=== PATIENT | male | born 1930 | race Two or more races ===

== ENCOUNTER 2016-06-19 16:58 | Inpatient (IN) | payer MEDICARE, BC ==
[~2016-06-19] VITALS: Ht 185.4 cm; Wt 97.5 kg
[2016-06-19] MEDS ORDERED: Meclizine 25mg tab ORAL ONE (18:15)
[2016-06-19 19:13] VITALS: BP 102/66
[2016-06-19 19:15] LABS: BASOPHILS % (AUTO) 1.2 % (0.0-2.0); LYMPHOCYTES % (AUTO) 10.6 % (20.0-45.0); MEAN CORPUSCULAR HEMOGLOBIN 30.2 PG (27.0-31.0); MEAN CORPUSCULAR HGB CONC 33.2 G/DL (32.0-36.0); MEAN CORPUSCULAR VOLUME 91 FL (80-99); MEAN PLATELET VOLUME 9.5 FL (6.5-10.1); MONOCYTES % (AUTO) 5.5 % (1.0-10.0); NEUTROPHILS % (AUTO) 82.7 % (45.0-75.0); PLATELET COUNT 156 K/UL (150-450); RED BLOOD COUNT 4.34 M/UL (4.70-6.10); RED CELL DISTRIBUTION WIDTH 13.9 % (11.6-14.8); WHITE BLOOD COUNT 7.7 K/UL (4.8-10.8)
[2016-06-19 19:35] LABS: ALANINE AMINOTRANSFERASE 22 U/L (3-41); ALBUMIN/GLOBULIN RATIO 1.3 (1.0-2.7); ANION GAP 17 (5-15); ASPARTATE AMINO TRANSFERASE 28 U/L (5-40); CALCIUM 8.9 mg/dL (8.6-10.2); CARBON DIOXIDE 25 mEQ/L (20-30); CHLORIDE 91 mEQ/L (98-107); CREATININE 1.6 mg/dL (0.7-1.2); HEMOLYSIS 12; POTASSIUM 4.5 mEQ/L (3.4-4.9); SODIUM 133 mEQ/L (135-145); TROPONIN I < 0.30 ng/mL (<=0.30)
[2016-06-19 19:46] LABS: CKMB 1.5 ng/mL (< 6.7)
[2016-06-19 19:57] LABS: BILIRUBIN,DIRECT 0.3 mg/dL (0.1-0.3)
[2016-06-19 21:15] VITALS: BP 116/73
--- NOTE | 2016-06-19 21:43 | Emergency Room Report ---
History of Present Illness General Chief Complaint: Dizziness Source: Patient, EMS Present Illness HPI 85-year-old male presents to ED complaining of dizziness. States he's been feeling the dizziness the last month but worse the last few days. Patient feels like the room is spinning. Denies blurry vision, nausea vomiting. His headaches. Denies chest pain or shortness of breath. States he was prescribed medication recently for the dizziness but states it is not helping. No other aggravating relieving factors. Denies any other associated symptoms Allergies: Coded Allergies: No Known Allergies (Unverified , 06/19/16) Patient History Past Medical History: CVA/TIA, seizures Past Surgical History: none Pertinent Family History: none Social History: Denies: alcohol use, drug use, smoking Immunizations: UTD Reviewed Nursing Documentation: PMH: Agreed, PSxH: Agreed Nursing Documentation-PMH Hx Hypertension: Yes Hx Cerebrovascular Accident: Yes Hx Seizures: Yes Review of Systems All Other Systems: negative except mentioned in HPI Physical Exam Vital Signs Date Time Temp Pulse Resp B/P Pulse Ox O2 Delivery O2 Flow Rate FiO2 06/19/16 16:54 98.8 92 16 145/89 97 Room Air Sp02 EP Interpretation: reviewed, normal General Appearance: no apparent distress, alert, GCS 15, non-toxic Head: normocephalic, atraumatic Eyes: bilateral eye PERRL, bilateral eye normal inspection ENT: hearing grossly normal, normal pharynx, no angioedema, normal voice Neck: full range of motion, supple/symm/no masses Respiratory: chest non-tender, lungs clear, normal breath sounds, speaking full sentences Cardiovascular #1: regular rate, rhythm, no edema Cardiovascular #2: 2+ carotid (R), 2+ carotid (L), 2+ radial (R), 2+ radial (L) , 2+ dorsalis pedis (R), 2+ dorsalis pedis (L) Gastrointestinal: normal bowel sounds, non tender, soft, non-distended, no guarding, no rebound Rectal: deferred Genitourinary: normal inspection, no CVA tenderness Musculoskeletal: back normal, gait/station normal, normal range of motion, non- tender Neurologic: alert, oriented x3, responsive, motor strength/tone normal, sensory intact, speech normal Psychiatric: judgement/insight normal, memory normal, mood/affect normal, no suicidal/homicidal ideation Reflexes: 3+ bicep (R), 3+ bicep (L), 3+ tricep (R), 3+ tricep (L), 3+ knee (R) , 3+ knee (L) Skin: normal color, no rash, warm/dry, well hydrated Lymphatic: no adenopathy Medical Decision Making Diagnostic Impression: Primary Impression: Dizziness Additional Impressions: Unsteady gait ARF (acute renal failure) Qualified Codes: N17.9 - Acute kidney failure, unspecified ER Course Hospital Course 85-year-old M presents ED complaining of dizziness Differential diagnoses include: [place]/unstable angina, arrythmia, dehydration, CVA/ TIA Clinical course Patient placed on stretcher. 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 After initial history and physical I ordered labs, EKG, chest x-ray, IVFs, CT Brain, meclizine labs reviewed- no leukocytosis, hemoglobin/hematocrit ok, Cr 1.6, troponins negative EKG- NSR, no acute ischemic changes Chest x-ray- no acute process CT brain-unremarkable Despite IV fluids and meclizine patient remains dizzy Case discussed with Dr. Paul and he agreed to accept the patient to his service for further care and support I. I feel this is a highly complex case requiring extensive working including EKG/Rhythm strip, Xray/CT/US, Blood/urine lab work, repeat exams while in ED, and administration of strong opiates/narcotics for pain control, admission to hospital or close patient follow up. Diagnosis - dizziness, unsteady gait, ARF admitted to telemetry in serious condition Labs Test 06/19/16 18:10 White Blood Count 7.7 K/UL (4.8-10.8) Red Blood Count 4.34 M/UL (4.70-6.10) Hemoglobin 13.1 G/DL (14.2-18.0) Hematocrit 39.5 % (42.0-52.0) Mean Corpuscular Volume 91 FL (80-99) Mean Corpuscular Hemoglobin 30.2 PG (27.0-31.0) Mean Corpuscular Hemoglobin Concent 33.2 G/DL (32.0-36.0) Red Cell Distribution Width 13.9 % (11.6-14.8) Platelet Count 156 K/UL (150-450) Mean Platelet Volume 9.5 FL (6.5-10.1) Neutrophils (%) (Auto) 82.7 % (45.0-75.0) Lymphocytes (%) (Auto) 10.6 % (20.0-45.0) Monocytes (%) (Auto) 5.5 % (1.0-10.0) Eosinophils (%) (Auto) 0.0 % (0.0-3.0) Basophils (%) (Auto) 1.2 % (0.0-2.0) Sodium Level 133 mEQ/L (135-145) Potassium Level 4.5 mEQ/L (3.4-4.9) Chloride Level 91 mEQ/L (98-107) Carbon Dioxide Level 25 mEQ/L (20-30) Anion Gap 17 (5-15) Blood Urea Nitrogen 18 mg/dL (7-23) Creatinine 1.6 mg/dL (0.7-1.2) Estimat Glomerular Filtration Rate mL/min (>60) Glucose Level 166 mg/dL (74-106) Calcium Level 8.9 mg/dL (8.6-10.2) Total Bilirubin 1.5 mg/dL (0.0-1.2) Direct Bilirubin 0.3 mg/dL (0.1-0.3) Aspartate Amino Transf (AST/SGOT) 28 U/L (5-40) Alanine Aminotransferase (ALT/SGPT) 22 U/L (3-41) Alkaline Phosphatase 47 U/L (40-129) Total Creatine Kinase 127 U/L (38-174) Creatine Kinase MB 1.5 ng/mL (< 6.7) Creatine Kinase MB Relative Index 1.1 Troponin I < 0.30 ng/mL (<=0.30) Pro-B-Type Natriuretic Peptide 765 pg/mL (0-450) Total Protein 7.0 g/dL (6.6-8.7) Albumin 4.0 g/dL (3.5-5.2) Globulin 3.0 g/dL Albumin/Globulin Ratio 1.3 (1.0-2.7) EKG Diagnostic Results Rate: normal Rhythm: NSR ST Segments: no acute changes ASA given to the pt in ED: No Rhythm Strip Diag. Results EP Interpretation: yes Rhythm: NSR, no PVC's, no ectopy Chest X-Ray Diagnostic Results EP Interpretation: Yes Findings: no consolidation, no effusion, no pneumothorax, no acute cardiopulmonary disease Number of Views: 1 CT/MRI/US Diagnostic Results CT/MRI/US Diagnostic Results : Imaging Test Ordered: CT head Impression no acute process Last Vital Signs Date Time Temp Pulse Resp B/P Pulse Ox O2 Delivery O2 Flow Rate FiO2 06/19/16 19:13 98.3 81 14 102/66 93 Room Air Status: improved Disposition: ADMITTED INPATIENT Condition: Serious Referrals: NON PHYSICIAN (PCP) HEATHER LICEA M.D. Jun 19, 2016 21:43
[2016-06-19 22:40] VITALS: BP 110/68
[2016-06-19] MEDS ORDERED: LORazepam Inj 2mg/ml 1ml IV PRN (22:45)
[2016-06-19] MEDS ORDERED: Mylanta II UD 30ml ORAL PRN (22:45)
[2016-06-19] MEDS ORDERED: Morphine Sulfate 2mg/ml Inj IVP PRN (22:45)
[2016-06-19] MEDS ORDERED: DuoNeb 0.5-3(2.5)mg/3ml neb HHN PRN (22:45)
[2016-06-19] MEDS ORDERED: Nitroglycerin Subl 0.4mg tab (Bottle Of 25) SL PRN (22:45)
[2016-06-19] MEDS ORDERED: Miralax 17gm pkt ORAL PRN (22:45)
[2016-06-19] MEDS ORDERED: UNOBMED (23:06)
[2016-06-20] VITALS (9 sets, daily range): BP systolic 105–147; BP diastolic 48–87
[2016-06-20] MEDS ORDERED: Meclizine 25mg tab ORAL PRN (00:15)
[2016-06-20] MEDS: Meclizine 25mg tab ORAL SCH ×4 (00:50→18:32)
[2016-06-20 08:07] LABS: BASOPHILS % (AUTO) 1.1 % (0.0-2.0); EOSINOPHILS % (AUTO) 1.1 % (0.0-3.0); LYMPHOCYTES % (AUTO) 27.5 % (20.0-45.0); MEAN CORPUSCULAR HEMOGLOBIN 30.2 PG (27.0-31.0); MEAN CORPUSCULAR HGB CONC 33.9 G/DL (32.0-36.0); MEAN CORPUSCULAR VOLUME 89 FL (80-99); MEAN PLATELET VOLUME 11.2 FL (6.5-10.1); MONOCYTES % (AUTO) 11.4 % (1.0-10.0); PLATELET COUNT 167 K/UL (150-450); RED BLOOD COUNT 4.54 M/UL (4.70-6.10); RED CELL DISTRIBUTION WIDTH 13.8 % (11.6-14.8); WHITE BLOOD COUNT 5.7 K/UL (4.8-10.8)
[2016-06-20 08:19] LABS: INR 1.1 (0.9-1.1); PROTHROMBIN TIME 11.4 SEC (9.30-11.50)
[2016-06-20 08:21] LABS: APPEARANCE,URINE CLEAR; KETONES,URINE NEGATIVE (NEGATIVE); LEUKOCYTE ESTERASE ,URINE 1+ (NEGATIVE); NITRITE,URINE NEGATIVE (NEGATIVE); PH,URINE 5 (4.5-8.0); PROTEIN,URINE 1+ (NEGATIVE); UROBILINOGEN,URINE 4 MG/DL (0.0-1.0)
[2016-06-20 08:25] LABS: URIC ACID 6.5 mg/dL (3.0-7.5)
[2016-06-20 08:30] LABS: FREE T3 1.8 pg/mL (2.3-4.2); THYROID STIMULATING HORMONE 2.96 uIU/mL (0.300-4.500)
[2016-06-20 08:41] LABS: ANION GAP 14 (5-15); ASPARTATE AMINO TRANSFERASE 26 U/L (5-40); CARBON DIOXIDE 26 mEQ/L (20-30); CHLORIDE 95 mEQ/L (98-107); HEMOLYSIS 5; POTASSIUM 4.1 mEQ/L (3.4-4.9); SODIUM 135 mEQ/L (135-145); TOTAL PROTEIN 6.7 g/dL (6.6-8.7)
[2016-06-20 08:50] LABS: BACTERIA,URINE FEW /HPF; RBC,URINE 0-2 /HPF (0 - 0); SQUAMOUS EPITHELIAL CELL,UR OCCASIONAL /LPF (NONE/OCC)
[2016-06-20 08:51] LABS: MUCUS,URINE FEW /LPF (NONE/OCC)
[2016-06-20] MEDS ORDERED: Heparin 5000 units/ml inj SUBQ SCH (09:00)
[2016-06-20 09:05] LABS: ALANINE AMINOTRANSFERASE 18 U/L (3-41); ALBUMIN/GLOBULIN RATIO 1.3 (1.0-2.7); CALCIUM 8.7 mg/dL (8.6-10.2); CHOLESTEROL 131 mg/dL (< 200); CREATININE 1.5 mg/dL (0.7-1.2); LDL CHOLESTEROL (CALC.) 75 mg/dL (60-99)
[2016-06-20 09:25] LABS: BILIRUBIN,DIRECT 0.3 mg/dL (0.1-0.3)
--- NOTE | 2016-06-20 12:27 | Diagnostic Imaging Report ---
Indication: Altered Mental status Technique: Contiguous 5 mm thick transaxial imaging of the head obtained in a Siemens Sensation [address] scanner. Soft tissue and bone windows generated. Total Dose length Product (DLP): [address] Dose Index Volume (CTDIvol): 70.38 mGy Comparison: none Findings: There is mild prominence of the ventricles, basal cisterns, and cerebral sulci consistent with atrophy. Mild, nonspecific, white matter hypoattenuation is noted throughout the brain consistent with chronic small vessel disease. There is no midline shift, edema, acute hemorrhage, mass effect, or abnormal extra-axial fluid collections. Bones and extra osseous soft tissues are unremarkable. Impression: No acute intracranial bleed, mass effect or edema. Mild atrophy of the brain. Nonspecific white matter hypoattenuation probably due to chronic small vessel disease. The CT scanner at [facility] is accredited by the [employer] and the scans are performed using protocols designed to limit radiation exposure to as low as reasonably achievable to attain images of sufficient resolution adequate for diagnostic evaluation.
--- NOTE | 2016-06-20 12:27 | Diagnostic Imaging Report ---
APPROVED REPORT CPT Code: 30653 Vascular Symptoms CVA/TIA: Doppler Spectral Velocity Analysis RightLeft RIGHT SIDE: CCA - Imaging reveals no significant plaque in the common carotid artery. ICA arteries. The Doppler signal indicates the degree of stenosis is mild (30%) in the internal carotid, and minimal (20%) in the external carotid arteries. VERTEBRAL - The vertebral artery is patent, without evidence of stenosis or steal. LEFT SIDE: CCA - Imaging reveals no significant plaque in the common carotid artery. ICA arteries. The Doppler signal indicates the degree of stenosis is mild (30%) in the internal carotid, and minimal (20%) in the external carotid arteries. VERTEBRAL - The vertebral artery is patent, without evidence of stenosis or steal.
--- NOTE | 2016-06-20 13:16 | Diagnostic Imaging Report ---
Indication: Chest Pain Comparison: None A single view chest radiograph was obtained. Findings: No definite infiltrate or pulmonary vascular congestion identified. Lung volumes are low. The heart is enlarged. The aorta is mildly enlarged consistent with atherosclerotic vascular disease. The bones are osteopenic. Impression: No acute disease
--- NOTE | 2016-06-20 14:28 | Consultation ---
History of Present Illness General Date patient seen: Jun 20, 2016 Chief Complaint: Dizziness Referring physician: Dr. Paul Reason for Consultation: Inpatient management Present Illness Allergies: Coded Allergies: No Known Allergies (Unverified , 06/19/16) Medication History Miscellaneous Medications Unable to Obtain Medications (Unable To Obtain Meds), (Reported) Patient History Healthcare decision maker pt alert and oriented Resuscitation status Full Code Advanced Directive on File No Past Medical/Surgical History Past Medical/Surgical History: (1) HTN (hypertension) (2) Weakness (3) Dizziness (4) ARF (acute renal failure) Review of Systems All Other Systems: negative except mentioned in HPI Physical Exam General Appearance: WD/WN Lines, tubes and drains: peripheral Neck: non-tender, normal alignment Respiratory/Chest: chest wall non-tender, lungs clear Cardiovascular/Chest: normal peripheral pulses Abdomen: normal bowel sounds Genitourinary/Rectal: normal genital exam Neurologic: sap ppm consultant II-XII grossly normal Last 24 Hour Vital Signs Date Time Temp Pulse Resp B/P Pulse Ox O2 Delivery O2 Flow Rate FiO2 06/20/16 11:57 78 06/20/16 11:22 97.3 85 20 132/75 98 Room Air 06/20/16 08:00 81 06/20/16 07:58 97.5 83 20 122/87 97 Room Air 06/20/16 04:00 79 06/20/16 04:00 97.0 91 20 144/70 96 Room Air 06/20/16 01:44 97.2 68 20 105/48 95 Room Air 06/20/16 00:17 97.0 88 20 116/66 95 Room Air 06/20/16 00:00 69 06/19/16 23:15 98.3 70 18 110/68 95 Room Air 06/19/16 22:40 98.3 70 18 110/68 95 Room Air 06/19/16 21:15 98.3 77 14 116/73 94 Room Air 06/19/16 19:13 98.3 81 14 102/66 93 Room Air 06/19/16 16:54 98.8 92 16 145/89 97 Room Air Intake and Output 06/19/16 06/20/16 19:00 07:00 Intake Total 1000 ml Output Total 350 ml Balance 650 ml IV Total 500 ml Other 500 ml Output Urine Total 350 ml # Voids 1 Laboratory Tests Test 06/19/16 18:10 06/20/16 06:58 06/20/16 07:00 White Blood Count 7.7 K/UL (4.8-10.8) 5.7 K/UL (4.8-10.8) Red Blood Count 4.34 M/UL (4.70-6.10) L 4.54 M/UL (4.70-6.10) L Hemoglobin 13.1 G/DL (14.2-18.0) L 13.7 G/DL (14.2-18.0) L Hematocrit 39.5 % (42.0-52.0) L 40.6 % (42.0-52.0) L Mean Corpuscular Volume 91 FL (80-99) 89 FL (80-99) Mean Corpuscular Hemoglobin 30.2 PG (27.0-31.0) 30.2 PG (27.0-31.0) Mean Corpuscular Hemoglobin Concent 33.2 G/DL (32.0-36.0) 33.9 G/DL (32.0-36.0) Red Cell Distribution Width 13.9 % (11.6-14.8) 13.8 % (11.6-14.8) Platelet Count 156 K/UL (150-450) 167 K/UL (150-450) Mean Platelet Volume 9.5 FL (6.5-10.1) 11.2 FL (6.5-10.1) H Neutrophils (%) (Auto) 82.7 % (45.0-75.0) H 59.0 % (45.0-75.0) Lymphocytes (%) (Auto) 10.6 % (20.0-45.0) L 27.5 % (20.0-45.0) Monocytes (%) (Auto) 5.5 % (1.0-10.0) 11.4 % (1.0-10.0) H Eosinophils (%) (Auto) 0.0 % (0.0-3.0) 1.1 % (0.0-3.0) Basophils (%) (Auto) 1.2 % (0.0-2.0) 1.1 % (0.0-2.0) Sodium Level 133 mEQ/L (135-145) L 135 mEQ/L (135-145) Potassium Level 4.5 mEQ/L (3.4-4.9) 4.1 mEQ/L (3.4-4.9) Chloride Level 91 mEQ/L (98-107) L 95 mEQ/L (98-107) L Carbon Dioxide Level 25 mEQ/L (20-30) 26 mEQ/L (20-30) Anion Gap 17 (5-15) H 14 (5-15) Blood Urea Nitrogen 18 mg/dL (7-23) 22 mg/dL (7-23) Creatinine 1.6 mg/dL (0.7-1.2) H 1.5 mg/dL (0.7-1.2) H Estimat Glomerular Filtration Rate mL/min (>60) mL/min (>60) Glucose Level 166 mg/dL (74-106) H 122 mg/dL (74-106) H Calcium Level 8.9 mg/dL (8.6-10.2) 8.7 mg/dL (8.6-10.2) Total Bilirubin 1.5 mg/dL (0.0-1.2) H 1.3 mg/dL (0.0-1.2) H Direct Bilirubin 0.3 mg/dL (0.1-0.3) 0.3 mg/dL (0.1-0.3) Aspartate Amino Transf (AST/SGOT) 28 U/L (5-40) 26 U/L (5-40) Alanine Aminotransferase (ALT/SGPT) 22 U/L (3-41) 18 U/L (3-41) Alkaline Phosphatase 47 U/L (40-129) 42 U/L (40-129) Total Creatine Kinase 127 U/L (38-174) Creatine Kinase MB 1.5 ng/mL (< 6.7) Creatine Kinase MB Relative Index 1.1 Troponin I < 0.30 ng/mL (<=0.30) Pro-B-Type Natriuretic Peptide 765 pg/mL (0-450) H Total Protein 7.0 g/dL (6.6-8.7) 6.7 g/dL (6.6-8.7) Albumin 4.0 g/dL (3.5-5.2) 3.8 g/dL (3.5-5.2) Globulin 3.0 g/dL 2.9 g/dL Albumin/Globulin Ratio 1.3 (1.0-2.7) 1.3 (1.0-2.7) Prothrombin Time 11.4 SEC (9.30-11.50) Prothromb Time International Ratio 1.1 (0.9-1.1) Activated Partial Thromboplast Time 30 SEC (23-33) Plasma/Serum Osmolality Pending Uric Acid 6.5 mg/dL (3.0-7.5) Triglycerides Level 170 mg/dL (< 150) H Cholesterol Level 131 mg/dL (< 200) LDL Cholesterol 75 mg/dL (60-99) HDL Cholesterol 22 mg/dL (> 60) Cholesterol/HDL Ratio 6.0 (3.3-4.4) H Thyroid Stimulating Hormone (TSH) 2.990 uIU/mL (0.300-4.500) Free Thyroxine 1.11 ng/dL (0.86-1.85) Free Triiodothyronine 1.8 pg/mL (2.3-4.2) L Cortisol Pending Urine Color Yellow Urine Appearance Clear Urine pH 5 (4.5-8.0) Urine Specific [place] 1.025 (1.005-1.035) Urine Protein 1+ (NEGATIVE) H Urine Glucose (UA) Negative (NEGATIVE) Urine Ketones Negative (NEGATIVE) Urine Occult Blood 1+ (NEGATIVE) H Urine Nitrite Negative (NEGATIVE) Urine Bilirubin Negative (NEGATIVE) Urine Urobilinogen 4 MG/DL (0.0-1.0) H Urine Leukocyte Esterase 1+ (NEGATIVE) H Urine RBC 0-2 /HPF (0 - 0) H Urine WBC 2-4 /HPF (0 - 0) Urine Squamous Epithelial Cells Occasional /LPF Urine Bacteria Few /HPF (NONE) Urine Mucus Few /LPF (NONE/OCC) H Urine Osmolality Pending Urine Random Sodium 112 mmol/L Height (Feet): 6 Height (Inches): 1.00 Weight (Pounds): 215 Medications Current Medications Medications (Trade) Dose Ordered Sig/Juanpablo Route PRN Reason Start Time Stop Time Status Last Admin Dose Admin Acetaminophen (Tylenol) 650 mg Q4H PRN ORAL Mild Pain/Temp > 100.5 06/20/16 04:00 07/20/16 03:59 06/20/16 04:11 Al Hydroxide/Mg Hydroxide (Mylanta II) 30 ml Q6H PRN ORAL dyspepsia 06/19/16 22:45 07/19/16 22:44 Albuterol/ Ipratropium (DuoNeb 0.5-3(2.5)mg/3ml) 3 ml Q4H PRN HHN Shortness of Breath 06/19/16 22:45 06/24/16 22:44 Clonidine HCl (Catapres) 0.1 mg Q4H PRN ORAL For High Blood Pressure 06/19/16 22:45 07/19/16 22:44 Dextrose (Dextrose 50%) STAT PRN IV Hypoglycemia 06/19/16 22:45 07/19/16 22:44 Heparin Sodium (Porcine) (Heparin 5000 units/ml) 5,000 units EVERY 12 HOURS SUBQ 06/20/16 09:00 07/20/16 08:59 06/20/16 08:33 Lorazepam (Ativan 2mg/ml 1ml) 0.5 mg Q4H PRN IV For Anxiety 06/19/16 22:45 06/26/16 22:44 Meclizine HCl (Antivert) 25 mg Q6H ORAL 06/20/16 00:15 07/20/16 00:14 06/20/16 12:28 Morphine Sulfate (Morphine Sulfate) 1 mg Q4H PRN IVP For Pain 7-10 06/19/16 22:45 06/26/16 22:44 Nitroglycerin (Ntg) 0.4 mg Q5M X 3 DOSES PRN SL Prn Chest Pain 06/19/16 22:45 07/19/16 22:44 Ondansetron HCl (Zofran) 4 mg Q6H PRN IVP Nausea & Vomiting 06/19/16 22:45 07/19/16 22:44 Polyethylene Glycol (Miralax) 17 gm HSPRN PRN ORAL Constipation 06/19/16 22:45 07/19/16 22:44 Temazepam (Restoril) 15 mg HSPRN PRN ORAL Insomnia 06/19/16 22:45 06/26/16 22:44 Assessment/Plan Problem List: (1) Positional vertigo ICD Codes: H81.10 - Benign paroxysmal vertigo, unspecified ear SNOMED: 740042178 (2) Atrial fibrillation ICD Codes: I48.91 - Unspecified atrial fibrillation SNOMED: 63126889 (3) Unsteady gait ICD Codes: R26.81 - Unsteadiness on feet SNOMED: 49746590, 304775138 (4) Weakness ICD Codes: R53.1 - Weakness SNOMED: 52252022 (5) HTN (hypertension) ICD Codes: I10 - Essential (primary) hypertension SNOMED: 79518553 Assessment/Plan telemetry admission echocardiogram neuro evaluatin monitor heart rate needs to get home meds. ANA M ESTEVES Jun 20, 2016 14:28
--- NOTE | 2016-06-20 14:40 | Consultation ---
Consult Note Consult Note I was asked to evaluate for elevated Cr Chief Complaint: Dizziness HPI 85-year-old male presents to ED complaining of dizziness. States he's been feeling the dizziness the last month but worse the last few days. Patient feels like the room is spinning. Denies blurry vision, nausea vomiting. His headaches. Denies chest pain or shortness of breath. States he was prescribed medication recently for the dizziness but states it is not helping. No other aggravating relieving factors. Denies any other associated symptoms Past Medical History: CVA/TIA, seizures Hx Hypertension: Yes Hx Cerebrovascular Accident: Yes Hx Seizures: Yes patient interviewed- poor historian- examined- data reviewed . Assessment/Plan status; Renal failure- ? dehydrated or related to HTN Ua : has + Proteinuria HTN CVA Plan: Hydrate- Monitor renal parameters- Urine studies- Per orders YANE VALENCIA Jun 20, 2016 14:40
--- NOTE | 2016-06-20 15:07 | Cardiology Report ---
APPROVED REPORT EXAM: Two-dimensional and M-mode echocardiogram with Doppler and color Doppler. INDICATION Left ventricular function M-Mode DIMENSIONS IVSd0.6 (0.7-1.1cm)Left Atrium (MM)4.5 (1.6-4.0cm) LVDd5.0 (3.5-5.6cm)Aortic Root2.8 (2.0-3.7cm) PWd0.8 (0.7-1.1cm)Aortic Cusp Exc.1.6 (1.5-2.0cm) LVDs3.9 (2.5-4.0cm) PWs0.8 cm Normal left ventricular chamber size, systolic function and wall motion. Left ventricular ejection fraction estimated to be 55-60%. No evidence of left ventricular hypertrophy. No evidence of pericardial fat or effusion. Mild left atrial enlargement by 2D. Right cardiac chamber sizes are within normal limits. Mild focal aortic valve sclerosis with adequate cusp excursion Thickened mitral valve leaflets with normal excursion. Mild mitral annulus and aortic root calcification. Pulmonic valve not well visualized. Normal tricuspid valve structure. IVC dilated at 2.4cm with no physiologic collapse. RA pressure of 20mmHg. A color flow and spectral Doppler study was performed and revealed: No aortic regurgitation. Mild mitral regurgitation. Left ventricular diastolic dysfunction not obtainable due to arrthymia. Moderate tricuspid regurgitation. Tricuspid systolic velocities suggests peak right ventricular systolic pressure of 42 mmHg Consistent with mild pulmonary hypertension.
--- NOTE | 2016-06-20 15:45 | Cardiac Electrophysiology PN ---
Subjective Subjective [id number]. Atrial fib. Tachybrady, NSVT, Dizziness and syncope. Offered EPS and pacer By Dr Montoya Objective Last 24 Hour Vital Signs Date Time Temp Pulse Resp B/P Pulse Ox O2 Delivery O2 Flow Rate FiO2 06/20/16 11:57 78 06/20/16 11:22 97.3 85 20 132/75 98 Room Air 06/20/16 08:00 81 06/20/16 07:58 97.5 83 20 122/87 97 Room Air 06/20/16 04:00 79 06/20/16 04:00 97.0 91 20 144/70 96 Room Air 06/20/16 01:44 97.2 68 20 105/48 95 Room Air 06/20/16 00:17 97.0 88 20 116/66 95 Room Air 06/20/16 00:00 69 06/19/16 23:15 98.3 70 18 110/68 95 Room Air 06/19/16 22:40 98.3 70 18 110/68 95 Room Air 06/19/16 21:15 98.3 77 14 116/73 94 Room Air 06/19/16 19:13 98.3 81 14 102/66 93 Room Air 06/19/16 16:54 98.8 92 16 145/89 97 Room Air Intake and Output 06/19/16 06/20/16 19:00 07:00 Intake Total 1000 ml Output Total 350 ml Balance 650 ml IV Total 500 ml Other 500 ml Output Urine Total 350 ml # Voids 1 Laboratory Tests Test 06/19/16 18:10 06/20/16 06:58 06/20/16 07:00 White Blood Count 7.7 K/UL (4.8-10.8) 5.7 K/UL (4.8-10.8) Red Blood Count 4.34 M/UL (4.70-6.10) L 4.54 M/UL (4.70-6.10) L Hemoglobin 13.1 G/DL (14.2-18.0) L 13.7 G/DL (14.2-18.0) L Hematocrit 39.5 % (42.0-52.0) L 40.6 % (42.0-52.0) L Mean Corpuscular Volume 91 FL (80-99) 89 FL (80-99) Mean Corpuscular Hemoglobin 30.2 PG (27.0-31.0) 30.2 PG (27.0-31.0) Mean Corpuscular Hemoglobin Concent 33.2 G/DL (32.0-36.0) 33.9 G/DL (32.0-36.0) Red Cell Distribution Width 13.9 % (11.6-14.8) 13.8 % (11.6-14.8) Platelet Count 156 K/UL (150-450) 167 K/UL (150-450) Mean Platelet Volume 9.5 FL (6.5-10.1) 11.2 FL (6.5-10.1) H Neutrophils (%) (Auto) 82.7 % (45.0-75.0) H 59.0 % (45.0-75.0) Lymphocytes (%) (Auto) 10.6 % (20.0-45.0) L 27.5 % (20.0-45.0) Monocytes (%) (Auto) 5.5 % (1.0-10.0) 11.4 % (1.0-10.0) H Eosinophils (%) (Auto) 0.0 % (0.0-3.0) 1.1 % (0.0-3.0) Basophils (%) (Auto) 1.2 % (0.0-2.0) 1.1 % (0.0-2.0) Sodium Level 133 mEQ/L (135-145) L 135 mEQ/L (135-145) Potassium Level 4.5 mEQ/L (3.4-4.9) 4.1 mEQ/L (3.4-4.9) Chloride Level 91 mEQ/L (98-107) L 95 mEQ/L (98-107) L Carbon Dioxide Level 25 mEQ/L (20-30) 26 mEQ/L (20-30) Anion Gap 17 (5-15) H 14 (5-15) Blood Urea Nitrogen 18 mg/dL (7-23) 22 mg/dL (7-23) Creatinine 1.6 mg/dL (0.7-1.2) H 1.5 mg/dL (0.7-1.2) H Estimat Glomerular Filtration Rate mL/min (>60) mL/min (>60) Glucose Level 166 mg/dL (74-106) H 122 mg/dL (74-106) H Calcium Level 8.9 mg/dL (8.6-10.2) 8.7 mg/dL (8.6-10.2) Total Bilirubin 1.5 mg/dL (0.0-1.2) H 1.3 mg/dL (0.0-1.2) H Direct Bilirubin 0.3 mg/dL (0.1-0.3) 0.3 mg/dL (0.1-0.3) Aspartate Amino Transf (AST/SGOT) 28 U/L (5-40) 26 U/L (5-40) Alanine Aminotransferase (ALT/SGPT) 22 U/L (3-41) 18 U/L (3-41) Alkaline Phosphatase 47 U/L (40-129) 42 U/L (40-129) Total Creatine Kinase 127 U/L (38-174) Creatine Kinase MB 1.5 ng/mL (< 6.7) Creatine Kinase MB Relative Index 1.1 Troponin I < 0.30 ng/mL (<=0.30) Pro-B-Type Natriuretic Peptide 765 pg/mL (0-450) H Total Protein 7.0 g/dL (6.6-8.7) 6.7 g/dL (6.6-8.7) Albumin 4.0 g/dL (3.5-5.2) 3.8 g/dL (3.5-5.2) Globulin 3.0 g/dL 2.9 g/dL Albumin/Globulin Ratio 1.3 (1.0-2.7) 1.3 (1.0-2.7) Prothrombin Time 11.4 SEC (9.30-11.50) Prothromb Time International Ratio 1.1 (0.9-1.1) Activated Partial Thromboplast Time 30 SEC (23-33) Plasma/Serum Osmolality Pending Uric Acid 6.5 mg/dL (3.0-7.5) Triglycerides Level 170 mg/dL (< 150) H Cholesterol Level 131 mg/dL (< 200) LDL Cholesterol 75 mg/dL (60-99) HDL Cholesterol 22 mg/dL (> 60) Cholesterol/HDL Ratio 6.0 (3.3-4.4) H Thyroid Stimulating Hormone (TSH) 2.990 uIU/mL (0.300-4.500) Free Thyroxine 1.11 ng/dL (0.86-1.85) Free Triiodothyronine 1.8 pg/mL (2.3-4.2) L Cortisol Pending Urine Color Yellow Urine Appearance Clear Urine pH 5 (4.5-8.0) Urine Specific [place] 1.025 (1.005-1.035) Urine Protein 1+ (NEGATIVE) H Urine Glucose (UA) Negative (NEGATIVE) Urine Ketones Negative (NEGATIVE) Urine Occult Blood 1+ (NEGATIVE) H Urine Nitrite Negative (NEGATIVE) Urine Bilirubin Negative (NEGATIVE) Urine Urobilinogen 4 MG/DL (0.0-1.0) H Urine Leukocyte Esterase 1+ (NEGATIVE) H Urine RBC 0-2 /HPF (0 - 0) H Urine WBC 2-4 /HPF (0 - 0) Urine Squamous Epithelial Cells Occasional /LPF Urine Bacteria Few /HPF (NONE) Urine Mucus Few /LPF (NONE/OCC) H Urine Osmolality Pending Urine Random Sodium 112 mmol/L COLBY DELATORRE Jun 20, 2016 15:45
[2016-06-20] MEDS ORDERED: D5NS 1,000 ML IV SCH (16:00)
[2016-06-20] MEDS ORDERED: Xarelto 15mg tab ORAL SCH (18:00)
[2016-06-20] MEDS ORDERED: Nitroglycerin Subl 0.4mg tab (Bottle Of 25) SL PRN (21:15)
--- NOTE | 2016-06-20 21:38 | Consultation ---
DATE OF CONSULTATION: 06/20/2016 REQUESTING PHYSICIAN: 1. Jenifer Paul M.D. 2. Afshin Ramos M.D. INDICATION FOR CONSULTATION: An 85-year-old male who was had a month when he stands up. Getting dizzy. It is getting worse about a month ago. He had a cold. Also, he has been worked up elsewhere. He does see Dr. Rashi Heath whose office is next door to me. So, all get some information from him when I get back to the office. MEDICATIONS: Tylenol, Mylanta, Catapres, heparin, albuterol, Ativan, meclizine, morphine, sulfate, Zofran, nitroglycerin, MiraLAX, and Restoril. PAST MEDICAL HISTORY: Significant for cerebrovascular accident, seizures, and hypertension in the past. ALLERGIES: No known drug allergies. PHYSICAL EXAMINATION: The patient is a 85-year-old male, 185.42 cm, 97.2 kg, BMI 28.4. Head is normocephalic. Eyes, pupils are equal, round, and reactive to light and EOMI. No nystagmus when I move his head right and left quickly and up and down and when he does it on his own as well, although he is lying down. When he sat up, he was okay and stands up. He says he gets dizzy. Mouth normal. Ears is positive light reflex. Normal canals. ASSESSMENT: He has vertigo. I am not sure if it is just hypotension and he needs to adjust his blood pressure medication or it is a semicircular canal issue, which is not evident. PLAN: When he is discharged next week, he is being seen in my office. We will arrange for a VNG and will let me know whether it is coming from his brain, his ear or peripherally such as a blood pressure issue. Thank you very much for asking me. I spent approximately 35 minutes with him. Thank you very much for asking my opinion in the care and treatment of this patient. Please also note, I spoke with Dr. Ramos. Bony Jasso M.D. DR: PARAS JOB#: [id number] CC:
[2016-06-20] MEDS ORDERED: Morphine Sulfate 2mg/ml Inj IVP PRN (22:00)
[2016-06-20] MEDS ORDERED: Miralax 17gm pkt ORAL PRN (22:00)
[2016-06-20] MEDS ORDERED: D5NS 1,000 ML IV ONE (22:00)
[2016-06-20] MEDS ORDERED: LORazepam Inj 2mg/ml 1ml IV PRN (22:00)
[2016-06-20] MEDS ORDERED: DuoNeb 0.5-3(2.5)mg/3ml neb HHN PRN (22:45)
--- NOTE | 2016-06-20 23:12 | Consultation ---
Consult Note Consult Note NEUROLOGY CONSULTATION: Full note dictated #[id number] 85 y/o, RH, CM with PH of HTN, a stroke with no specific symptoms that he can describe a few years ago and positional vertigo for ~ 1 year. A few days PRODUCTION LINE the vertigo became much more frequent and much more severe and he thus came to the [facility] ER. ON EXAM: Mild problems with memory Right VII central Right FE weakness Globally diminished reflexes. Few beats of nystagmus but no vertigo on R-Sided head movement. Wide based stance and gait. 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 REC: MRI of brain. W/U neuropathy. If vertigo becomes more bothersome Valium 2 mg q HS. Mckenzie-Daroff exercises. Lars Jama M.D., M.S.P.LARS VEE Jun 20, 2016 23:12
[2016-06-21] VITALS: BP 137/88
--- NOTE | 2016-06-21 01:18 | Consultation ---
DATE OF CONSULTATION: 06/20/2016 NEUROLOGY CONSULTATION CONSULTING PHYSICIAN: Kush Jama M.D. REFERRING PHYSICIAN: Jenifer Paul M.D. HISTORY: Mr. Jack Salazar is an 85-year-old, right-handed, gentleman, who does have a past history of hypertension, a stroke with no specific symptoms a few years ago, and positional vertigo usually when he wakes up in the morning for the last year or so. A few days prior to admission, the vertigo became much more frequent and much more severe, and he was having multiple episodes of vertigo during the day. Because of these frequent episodes of vertigo, he presented to the [facility] emergency room. He denies any associated weakness on one side or the other, numbness on one side or the other, problems with speech, problems with language, problems with vision, nausea, or vomiting. He is unable to tell me if the vertigo becomes worse if he lies on one side or the other or if it worsens if he is undergoing any kind of activity. He, however, notices it most when he changes his position. He has noticed that if he lays still, the vertigo does not bother him. PAST MEDICAL HISTORY: Significant for high blood pressure for numerous years, a stroke with nonspecific symptoms a few years ago. FAMILY HISTORY: Nothing significant. PERSONAL HISTORY: Home: He lives at home with his . 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 Habits: He denies use of alcohol, tobacco, or illicit drugs. PRESENT MEDICATIONS: Xarelto, Antivert, clonidine, DuoNeb, Tylenol, lorazepam, morphine p.r.n., Zofran p.r.n., MiraLAX, Restoril, and nitroglycerin p.r.n. PHYSICAL EXAMINATION: GENERAL: He is a well-developed, well-nourished, pleasant, gentleman, lying in bed, in no acute distress. VITAL SIGNS: Pulse 72 per minute, blood pressure 138/78 mmHg, respirations 18 per minute, and temperature 98.1 degrees Fahrenheit. HEAD: Normocephalic and atraumatic. EENT: Examination benign except for decreased hearing bilaterally. NECK: No neck rigidity was observed. NEUROLOGICAL EXAMINATION: MENTAL STATUS EXAMINATION: He was awake and alert. He was oriented to person, place, and time. He was able to recall 3/3 words immediately after 1 minute and 3 minutes on the second trial. He was able to remember presidents, Trump through Saenz Sr. with hints. His mathematical skills were fairly good. His visuospatial function was preserved. SPEECH: He had no dysarthria. LANGUAGE: He had a mild anomia for low-frequency words. CRANIAL NERVE EXAMINATION: II: The visual chavez were intact on confrontation testing. III, IV & : The external ocular movements were full and the pupils 3 mm in diameter, equal, round, regular, and reactive to light. V: He had normal facial sensations and the temporales, masseters, and pterygoids functioned normally. VII: He had a right VII central facial paresis. VIII: Hearing was decreased bilaterally. He did have a few beats of nystagmus when his head was turned to the right side, however, this was not reproducible. IX: The palate moved symmetrically on phonation. X: He had no hoarseness of voice. XI: The sternocleidomastoids and trapezii functioned normally. XII: The tongue was in the midline without any fasciculations or atrophy. MOTOR SYSTEM: The tone was normal in all four extremities. Examination of muscle mass revealed no focal wasting. Examination of power revealed grade 5/5 power except for grade 4+/5 power in the right finger extensors. SENSORY EXAMINATION: He had intact sensations to pinprick, light touch, and graphesthesia. Position sense was minimally diminished in the toes bilaterally, but was normal in the fingers bilaterally. COORDINATION: He performed well on burexz-ge-ajki and lldu-mz-ubfi testing. On Romberg test, he swayed, but did not fall to one side or the other. REFLEXES: Trace+ and bilaterally symmetric at the biceps, triceps, brachioradialis, and knees. 0 at both ankles. The plantar responses were flexor bilaterally. STANCE: He had a wide-based stance. GAIT: He walked with a wide-based, but stable gait with contact guard. DIAGNOSTIC IMPRESSION: 1. Mr. Jack Salazar is an 85-year-old, right-handed, gentleman, who does have a past history of hypertension, a stroke with no specific symptoms a few years ago, and positional vertigo for the last year or so. A few days ago, his vertigo became much more frequent, much more severe, and much more bothersome. As a result of that, he presented to the [facility] emergency room on 06/19/2016 and has since been admitted. 2. On neurological examination at this time, he does demonstrate mild problems with recent and remote memory, a mild right VII central facial paresis, right finger extensor weakness, decreased position sense in the toes bilaterally, globally diminished deep tendon reflexes, a few beats of nystagmus, but no vertigo when the head was turned to the right side, a wide-based stance, and a wide-based gait. 3. Laboratory data revealed a mild anemia with a hemoglobin of 13.1. The chemistry panel revealed a creatinine elevated to 1.6, sodium down to 133, chloride down to 91, bilirubin elevated to 1.5, ProBNP elevated to 765, and normal TSH and T4 with a minimally low T3. The urinalysis revealed 1+ leukocyte esterase, 0-2 red blood cells, and 2-4 white blood cells per high-power field. 4. 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 The right paresis involving the face and upper extremity are most probably related to his old stroke; however, because he vehemently denies any weakness in the past, this should be investigated. 5. He also has signs of an additional neuropathic process, mainly the decreased position sense in the toes bilaterally, diminished deep tendon reflexes, and unsteadiness on his feet, which should be worked up. RECOMMENDATIONS: 1. Agree with management thus far. 2. An MRI scan of the brain will be ordered to evaluate the patient for his right-sided weakness. 3. He will be worked up thoroughly for other treatable cause of neuropathy with a B12 level, folate level, vitamin D level, RPR, glycohemoglobin, and Westergren sedimentation rate. 4. If the vertigo becomes more bothersome, then he may respond well to Valium 2 mg taken at bedtime. 5. Mckenzie-Daroff exercises should be started to help him with his labyrinthine vertigo. Thank you for entrusting me with the care of Mr. Salazar I shall follow him with you. Kush Jama M.D., M.S.P.H. DR: MARCUS JOB#: [id number] MTDD
[2016-06-21 04:00] VITALS: BP 140/104
[2016-06-21 07:03] LABS: BASOPHILS % (AUTO) 1.3 % (0.0-2.0); LYMPHOCYTES % (AUTO) 24.3 % (20.0-45.0); MEAN CORPUSCULAR HEMOGLOBIN 30.4 PG (27.0-31.0); MEAN CORPUSCULAR HGB CONC 34.2 G/DL (32.0-36.0); MEAN CORPUSCULAR VOLUME 89 FL (80-99); MEAN PLATELET VOLUME 10.3 FL (6.5-10.1); MONOCYTES % (AUTO) 9.4 % (1.0-10.0); PLATELET COUNT 162 K/UL (150-450); RED BLOOD COUNT 4.58 M/UL (4.70-6.10); RED CELL DISTRIBUTION WIDTH 13.7 % (11.6-14.8); WHITE BLOOD COUNT 5.2 K/UL (4.8-10.8)
[2016-06-21 07:16] LABS: ALANINE AMINOTRANSFERASE 18 U/L (3-41); ALBUMIN/GLOBULIN RATIO 1.2 (1.0-2.7); ANION GAP 16 (5-15); ASPARTATE AMINO TRANSFERASE 34 U/L (5-40); CALCIUM 8.6 mg/dL (8.6-10.2); CARBON DIOXIDE 25 mEQ/L (20-30); CHLORIDE 96 mEQ/L (98-107); CHOLESTEROL 145 mg/dL (< 200); CHOLESTEROL/HDL RATIO 6.9 (3.3-4.4); CREATININE 1.4 mg/dL (0.7-1.2); CRP QUANT 3.5 mg/dL (< 0.5); HEMOLYSIS 9; LDL CHOLESTEROL (CALC.) 83 mg/dL (60-99); PHOSPHORUS 2.7 mg/dL (2.5-4.8); POTASSIUM 4.1 mEQ/L (3.4-4.9); SODIUM 137 mEQ/L (135-145); TOTAL PROTEIN 6.6 g/dL (6.6-8.7); URIC ACID 5.9 mg/dL (3.0-7.5)
[2016-06-21 07:38] LABS: HEMOGLOBIN A1C 6.9 % (< 6.0)
[2016-06-21 08:00] VITALS: BP 134/99
[2016-06-21 09:25] LABS: CORTISOL LC 13.4 ug/dL (.)
[2016-06-21] MEDS: Meclizine 25mg tab ORAL SCH ×2 (10:00→18:07)
[2016-06-21] MEDS ORDERED: LISINOPRIL20 MG ORAL (10:07)
[2016-06-21] MEDS ORDERED: HYDROCHLOROTH12.5 M2 ORAL (10:07)
--- NOTE | 2016-06-21 10:58 | Cardiology Report ---
APPROVED REPORT EKG Measurement Heart [id number] Sinus rhythm with first degree AV block. PACs. Abnormal ECG
--- NOTE | 2016-06-21 11:18 | General Progress Note ---
Assessment/Plan Problem List: (1) Positional vertigo ICD Codes: H81.10 - Benign paroxysmal vertigo, unspecified ear SNOMED: 297808556 (2) HTN (hypertension) ICD Codes: I10 - Essential (primary) hypertension SNOMED: 55505314 (3) Weakness ICD Codes: R53.1 - Weakness SNOMED: 35032701 (4) Dizziness ICD Codes: R42 - Dizziness and giddiness SNOMED: 166651446, 668607869 (5) ARF (acute renal failure) ICD Codes: N17.9 - Acute kidney failure, unspecified SNOMED: 91686953 Qualifiers: Qualified Codes: N17.9 - Acute kidney failure, unspecified (6) Unsteady gait ICD Codes: R26.81 - Unsteadiness on feet SNOMED: 42459187, 265795827 Status: progressing Assessment/Plan afebrile htn weakness vertigo treatment per ent arrythmia Subjective ROS Limited/Unobtainable: Yes Allergies: Coded Allergies: No Known Allergies (Unverified , 06/19/16) Objective Last 24 Hour Vital Signs Date Time Temp Pulse Resp B/P Pulse Ox O2 Delivery O2 Flow Rate FiO2 06/21/16 08:00 98.9 100 18 134/99 96 Room Air 06/21/16 04:00 97.2 95 20 140/104 95 Room Air 06/21/16 00:00 98.6 52 19 137/88 95 Room Air 06/20/16 21:29 98.1 72 19 138/78 94 Room Air 06/20/16 20:00 97.5 95 18 141/86 95 Room Air 06/20/16 16:00 97.2 104 20 134/78 97 Room Air 06/20/16 15:20 93 06/20/16 11:57 78 06/20/16 11:22 97.3 85 20 132/75 98 Room Air Intake and Output 06/20/16 06/21/16 19:00 07:00 Intake Total 585 ml 465 ml Balance 585 ml 465 ml Intake Oral 360 ml 240 ml IV Total 225 ml 225 ml # Voids 1 3 Laboratory Tests 06/21/16 06:20: White Blood Count 5.2, Red Blood Count 4.58L, Hemoglobin 14.0L, Hematocrit 40.8L , Mean Corpuscular Volume 89, Mean Corpuscular Hemoglobin 30.4, Mean Corpuscular Hemoglobin Concent 34.2, Red Cell Distribution Width 13.7, Platelet Count 162, Mean Platelet Volume 10.3H, Neutrophils (%) (Auto) 64.0, Lymphocytes (%) (Auto) 24.3, Monocytes (%) (Auto) 9.4, Eosinophils (%) (Auto) 1.0, Basophils (%) (Auto) 1.3, Erythrocyte Sedimentation Rate 41H, Sodium Level 137, Potassium Level 4.1, Chloride Level 96L, Carbon Dioxide Level 25, Anion Gap 16H , Blood Urea Nitrogen 22, Creatinine 1.4H, Estimat Glomerular Filtration Rate , Glucose Level 154H, Hemoglobin A1c 6.9H, Uric Acid 5.9, Calcium Level 8.6, Phosphorus Level 2.7, Magnesium Level 2.0, Total Bilirubin 1.0, Gamma Glutamyl Transpeptidase 21, Aspartate Amino Transf (AST/SGOT) 34, Alanine Aminotransferase (ALT/SGPT) 18, Alkaline Phosphatase 44, Total Creatine Kinase 591H, C-Reactive Protein, Quantitative 3.5H, Pro-B-Type Natriuretic Peptide 565H , Total Protein 6.6, Total Protein (PEP) [Pending], Albumin 3.7, Albumin (PEP) [ Pending], Globulin 2.9, Globulin (PEP) [Pending], Albumin/Globulin Ratio 1.2, Cuyjk-0-Lxtfqrvmg [Pending], Dauhq-9-Kzrtjtsgk [Pending], Beta Globulins [ Pending], Beta Gamma Globulin [Pending], PEP Abnormal Protein Bands [Pending], Protein Electrophoresis Interpret [Pending], Triglycerides Level 204H, Cholesterol Level 145, LDL Cholesterol 83, HDL Cholesterol 21, Cholesterol/HDL Ratio 6.9H, Vitamin B12 Level 433, Vitamin D 25-Hydroxy [Pending], 25-Hydroxy Vitamin D2 [Pending], 25-Hydroxy Vitamin D3 [Pending], Folate [Pending], Thyroid Stimulating Hormone (TSH) 5.880H, Rapid Plasma Reagin [Pending] Height (Feet): 6 Height (Inches): 1.00 Weight (Pounds): 215 Cardiovascular: normal rate Respiratory/Chest: lungs clear Abdomen: soft Jenifer Paul MD Jun 21, 2016 11:18
--- NOTE | 2016-06-21 11:44 | Diagnostic Imaging Report ---
Indication: 85-year-old male inpatient with severe vertigo, unable to stand well. History of prior seizures Technique: sagittal T1 fast spin echo, axial T1 FLAIR PROPELLER, axial T2 FLAIR PROPELLER, axial T2 FS PROPELLER, axial T2* GRE, axial diffusion weighted images. ADC and exponential ADC maps generated Comparison: Brain CT 06/19/16 Findings: . No abnormal areas of restricted diffusion to suggest acute infarction. No acute hemorrhage or edema. No mass effect nor midline shift. Is age-related enlargement of the ventricles and extra axial CSF spaces. There is periventricular deep white matter confluent and focal nonspecific T2 hyperintensities. Unusual high right frontal calvarial signal void is consistent with unusual extension of the right frontal sinus. Visualized orbits and sinuses are unremarkable otherwise. The vascular flow voids are preserved. Impression: Chronic and age-related changes Negative for acute intracranial bleed, mass effect, or infarct
[2016-06-21 12:07] VITALS: BP 133/81
--- NOTE | 2016-06-21 12:29 | General Progress Note ---
Assessment/Plan Status: stable Status Narrative Cr lowering Assessment/Plan status; Renal failure- ? 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 Plan: Hydrate- Monitor renal parameters- Urine studies- per neuro advise Per orders Subjective ROS Limited/Unobtainable: No Constitutional: Reports: malaise, weakness Allergies: Coded Allergies: No Known Allergies (Unverified , 06/19/16) Objective Last 24 Hour Vital Signs Date Time Temp Pulse Resp B/P Pulse Ox O2 Delivery O2 Flow Rate FiO2 06/21/16 12:07 98.2 92 18 133/81 95 Room Air 06/21/16 08:00 98.9 100 18 134/99 96 Room Air 06/21/16 04:00 97.2 95 20 140/104 95 Room Air 06/21/16 00:00 98.6 52 19 137/88 95 Room Air 06/20/16 21:29 98.1 72 19 138/78 94 Room Air 06/20/16 20:00 97.5 95 18 141/86 95 Room Air 06/20/16 16:00 97.2 104 20 134/78 97 Room Air 06/20/16 15:20 93 Intake and Output 06/20/16 06/21/16 19:00 07:00 Intake Total 585 ml 540 ml Balance 585 ml 540 ml Intake Oral 360 ml 240 ml IV Total 225 ml 300 ml # Voids 1 3 Laboratory Tests 06/21/16 06:20: White Blood Count 5.2, Red Blood Count 4.58L, Hemoglobin 14.0L, Hematocrit 40.8L , Mean Corpuscular Volume 89, Mean Corpuscular Hemoglobin 30.4, Mean Corpuscular Hemoglobin Concent 34.2, Red Cell Distribution Width 13.7, Platelet Count 162, Mean Platelet Volume 10.3H, Neutrophils (%) (Auto) 64.0, Lymphocytes (%) (Auto) 24.3, Monocytes (%) (Auto) 9.4, Eosinophils (%) (Auto) 1.0, Basophils (%) (Auto) 1.3, Erythrocyte Sedimentation Rate 41H, Sodium Level 137, Potassium Level 4.1, Chloride Level 96L, Carbon Dioxide Level 25, Anion Gap 16H , Blood Urea Nitrogen 22, Creatinine 1.4H, Estimat Glomerular Filtration Rate , Glucose Level 154H, Hemoglobin A1c 6.9H, Uric Acid 5.9, Calcium Level 8.6, Phosphorus Level 2.7, Magnesium Level 2.0, Total Bilirubin 1.0, Gamma Glutamyl Transpeptidase 21, Aspartate Amino Transf (AST/SGOT) 34, Alanine Aminotransferase (ALT/SGPT) 18, Alkaline Phosphatase 44, Total Creatine Kinase 591H, C-Reactive Protein, Quantitative 3.5H, Pro-B-Type Natriuretic Peptide 565H , Total Protein 6.6, Total Protein (PEP) [Pending], Albumin 3.7, Albumin (PEP) [ Pending], Globulin 2.9, Globulin (PEP) [Pending], Albumin/Globulin Ratio 1.2, Eqghf-4-Govlqeemg [Pending], Foxwz-4-Yzlokiomb [Pending], Beta Globulins [ Pending], Beta Gamma Globulin [Pending], PEP Abnormal Protein Bands [Pending], Protein Electrophoresis Interpret [Pending], Triglycerides Level 204H, Cholesterol Level 145, LDL Cholesterol 83, HDL Cholesterol 21, Cholesterol/HDL Ratio 6.9H, Vitamin B12 Level 433, Vitamin D 25-Hydroxy [Pending], 25-Hydroxy Vitamin D2 [Pending], 25-Hydroxy Vitamin D3 [Pending], Folate [Pending], Thyroid Stimulating Hormone (TSH) 5.880H, Rapid Plasma Reagin [Pending] Height (Feet): 6 Height (Inches): 1.00 Weight (Pounds): 215 General Appearance: no apparent distress Cardiovascular: tachycardia - - variable rates Respiratory/Chest: decreased breath sounds Abdomen: soft Objective other physical exam not changed YANE VALENCIA Jun 21, 2016 12:29
--- NOTE | 2016-06-21 13:28 | History and Physical Report ---
DATE OF ADMISSION: 06/19/2016 HISTORY OF PRESENT ILLNESS: The patient admitted for dizziness, unsteady gait, acute renal failure. The patient has been having near syncopal episodes with vertigo, dizziness, and ataxia for the past two days. The patient has a history of chronic dizziness. The patient has a history of CVA. Denies headache. Denies diplopia. Denies any vision changes. Denies rectal bleeding. Denies cough. No shortness of breath. No chest pain. PAST MEDICAL HISTORY: Significant for history of CVA, history of hypertension, history of possible BPH. PAST SURGICAL HISTORY: Prostate surgery. MEDICATIONS: Unable to obtain. ALLERGIES: No known drug allergies. SOCIAL HISTORY: The patient denies any history of smoking, alcohol, or illicit drugs. Denies . FAMILY HISTORY: Noncontributory. REVIEW OF SYSTEMS: HEENT: Denies headaches. Respiratory: Denies shortness of breath. Denies cough. Cardiovascular: Denies chest pain. Gastrointestinal: Denies nausea, vomiting or diarrhea. Extremities: Denies pain in the lower extremities. Central Nervous System: Reports dizziness, vertigo, ataxia, near syncope for the past two days. The patient has history of CVA. PHYSICAL EXAMINATION: VITAL SIGNS: Temperature is 97 degrees, pulse 88, and blood pressure 116/66. HEENT: PERRLA. NECK: Supple. No lymphadenopathy. CHEST: Clear to auscultation. CARDIOVASCULAR: Regular rate and rhythm. No murmurs. GASTROINTESTINAL: Soft, nontender and nondistended. No organomegaly. EXTREMITIES: No edema. Reflexes are equal on both sides. He is able to move all 4 extremities. NEUROLOGIC: Cranial nerves II through XII intact. LABORATORY AND DIAGNOSTIC DATA: WBC 7.7, hemoglobin 13.1, and platelet 156,000. Sodium 133, potassium 4.5, BUN 18, creatinine 1.6, and glucose 166. 1.5. BNP 765. ASSESSMENT AND PLAN: 1. Elevated BNP. 2. Azotemia. 3. Acute renal failure. 4. Vertigo. 5. Dizziness. 6. Syncopal episode. I have asked Dr. Chirinos, Dr. Jasso, Dr. Jama, and Dr. Vanessa to see the patient for the above mentioned diagnoses and treatment. Ali Ang Paul DR: Melany JOB#: [id number] CC:
[2016-06-21 16:09] VITALS: BP 130/90
--- NOTE | 2016-06-21 17:15 | Cardiac Electrophysiology PN ---
Assessment/Plan Assessment/Plan 1. Atrial fib. Rate controlled off any AVN paola. On Xarelto. 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 3. CKD 4. Vertigo DW RN Subjective Subjective Comfortable in NAD. Transferred to nonmonitored bed. Objective Last 24 Hour Vital Signs Date Time Temp Pulse Resp B/P Pulse Ox O2 Delivery O2 Flow Rate FiO2 06/21/16 16:09 99.1 83 17 130/90 95 Room Air 06/21/16 12:07 98.2 92 18 133/81 95 Room Air 06/21/16 08:00 98.9 100 18 134/99 96 Room Air 06/21/16 04:00 97.2 95 20 140/104 95 Room Air 06/21/16 00:00 98.6 52 19 137/88 95 Room Air 06/20/16 21:29 98.1 72 19 138/78 94 Room Air 06/20/16 20:00 97.5 95 18 141/86 95 Room Air Intake and Output 06/20/16 06/21/16 19:00 07:00 Intake Total 585 ml 540 ml Balance 585 ml 540 ml Intake Oral 360 ml 240 ml IV Total 225 ml 300 ml # Voids 1 3 Laboratory Tests Test 06/21/16 06:20 White Blood Count 5.2 K/UL (4.8-10.8) Red Blood Count 4.58 M/UL (4.70-6.10) L Hemoglobin 14.0 G/DL (14.2-18.0) L Hematocrit 40.8 % (42.0-52.0) L Mean Corpuscular Volume 89 FL (80-99) Mean Corpuscular Hemoglobin 30.4 PG (27.0-31.0) Mean Corpuscular Hemoglobin Concent 34.2 G/DL (32.0-36.0) Red Cell Distribution Width 13.7 % (11.6-14.8) Platelet Count 162 K/UL (150-450) Mean Platelet Volume 10.3 FL (6.5-10.1) H Neutrophils (%) (Auto) 64.0 % (45.0-75.0) Lymphocytes (%) (Auto) 24.3 % (20.0-45.0) Monocytes (%) (Auto) 9.4 % (1.0-10.0) Eosinophils (%) (Auto) 1.0 % (0.0-3.0) Basophils (%) (Auto) 1.3 % (0.0-2.0) Erythrocyte Sedimentation Rate 41 MM/HR (0-30) H Sodium Level 137 mEQ/L (135-145) Potassium Level 4.1 mEQ/L (3.4-4.9) Chloride Level 96 mEQ/L (98-107) L Carbon Dioxide Level 25 mEQ/L (20-30) Anion Gap 16 (5-15) H Blood Urea Nitrogen 22 mg/dL (7-23) Creatinine 1.4 mg/dL (0.7-1.2) H Estimat Glomerular Filtration Rate mL/min (>60) Glucose Level 154 mg/dL (74-106) H Hemoglobin A1c 6.9 % (< 6.0) H Uric Acid 5.9 mg/dL (3.0-7.5) Calcium Level 8.6 mg/dL (8.6-10.2) Phosphorus Level 2.7 mg/dL (2.5-4.8) Magnesium Level 2.0 mg/dL (1.7-2.5) Total Bilirubin 1.0 mg/dL (0.0-1.2) Gamma Glutamyl Transpeptidase 21 U/L (8-61) Aspartate Amino Transf (AST/SGOT) 34 U/L (5-40) Alanine Aminotransferase (ALT/SGPT) 18 U/L (3-41) Alkaline Phosphatase 44 U/L (40-129) Total Creatine Kinase 591 U/L (38-174) H C-Reactive Protein, Quantitative 3.5 mg/dL (< 0.5) H Pro-B-Type Natriuretic Peptide 565 pg/mL (0-450) H Total Protein 6.6 g/dL (6.6-8.7) Total Protein (PEP) Pending Albumin 3.7 g/dL (3.5-5.2) Albumin (PEP) Pending Globulin 2.9 g/dL Globulin (PEP) Pending Albumin/Globulin Ratio 1.2 (1.0-2.7) Batwm-3-Oudruduzm Pending Frqbm-9-Obwumqdwk Pending Beta Globulins Pending Beta Gamma Globulin Pending PEP Abnormal Protein Bands Pending Protein Electrophoresis Interpret Pending Triglycerides Level 204 mg/dL (< 150) H Cholesterol Level 145 mg/dL (< 200) LDL Cholesterol 83 mg/dL (60-99) HDL Cholesterol 21 mg/dL (> 60) Cholesterol/HDL Ratio 6.9 (3.3-4.4) H Vitamin B12 Level 433 pg/mL (211-946) Vitamin D 25-Hydroxy Pending 25-Hydroxy Vitamin D2 Pending 25-Hydroxy Vitamin D3 Pending Folate Pending Thyroid Stimulating Hormone (TSH) 5.880 uIU/mL (0.300-4.500) Rapid Plasma Reagin Pending Objective HEENT: No JVD CHEST: Clear to auscultation. CARDIOVASCULAR: Irregular rate and rhythm. No murmurs. GASTROINTESTINAL: Soft, nontender and nondistended. EXTREMITIES: No edema. Reflexes are equal on both sides. He is able to move all 4 extremities. COLBY DELATORRE Jun 21, 2016 17:15
[2016-06-21 20:00] VITALS: BP 129/82
--- NOTE | 2016-06-21 20:02 | Neurology Progress Note ---
Interim History Interim History Interim History Mr. Salazar feels better. The dizziness is better. He however is a little delirious. He mistook a scrape on a wall as a spider and his says he is behaving in a weird manner. He denies any new neurologic symptoms. Review of Systems Neuro Review of Systems Benign. Objective Physical Exam Last Vital Signs Date Time Temp Pulse Resp B/P Pulse Ox O2 Delivery O2 Flow Rate FiO2 06/21/16 16:09 99.1 83 17 130/90 95 Room Air Laboratory Tests Test 06/21/16 06:20 White Blood Count 5.2 K/UL (4.8-10.8) Red Blood Count 4.58 M/UL (4.70-6.10) L Hemoglobin 14.0 G/DL (14.2-18.0) L Hematocrit 40.8 % (42.0-52.0) L Mean Corpuscular Volume 89 FL (80-99) Mean Corpuscular Hemoglobin 30.4 PG (27.0-31.0) Mean Corpuscular Hemoglobin Concent 34.2 G/DL (32.0-36.0) Red Cell Distribution Width 13.7 % (11.6-14.8) Platelet Count 162 K/UL (150-450) Mean Platelet Volume 10.3 FL (6.5-10.1) H Neutrophils (%) (Auto) 64.0 % (45.0-75.0) Lymphocytes (%) (Auto) 24.3 % (20.0-45.0) Monocytes (%) (Auto) 9.4 % (1.0-10.0) Eosinophils (%) (Auto) 1.0 % (0.0-3.0) Basophils (%) (Auto) 1.3 % (0.0-2.0) Erythrocyte Sedimentation Rate 41 MM/HR (0-30) H Sodium Level 137 mEQ/L (135-145) Potassium Level 4.1 mEQ/L (3.4-4.9) Chloride Level 96 mEQ/L (98-107) L Carbon Dioxide Level 25 mEQ/L (20-30) Anion Gap 16 (5-15) H Blood Urea Nitrogen 22 mg/dL (7-23) Creatinine 1.4 mg/dL (0.7-1.2) H Estimat Glomerular Filtration Rate mL/min (>60) Glucose Level 154 mg/dL (74-106) H Hemoglobin A1c 6.9 % (< 6.0) H Uric Acid 5.9 mg/dL (3.0-7.5) Calcium Level 8.6 mg/dL (8.6-10.2) Phosphorus Level 2.7 mg/dL (2.5-4.8) Magnesium Level 2.0 mg/dL (1.7-2.5) Total Bilirubin 1.0 mg/dL (0.0-1.2) Gamma Glutamyl Transpeptidase 21 U/L (8-61) Aspartate Amino Transf (AST/SGOT) 34 U/L (5-40) Alanine Aminotransferase (ALT/SGPT) 18 U/L (3-41) Alkaline Phosphatase 44 U/L (40-129) Total Creatine Kinase 591 U/L (38-174) H C-Reactive Protein, Quantitative 3.5 mg/dL (< 0.5) H Pro-B-Type Natriuretic Peptide 565 pg/mL (0-450) H Total Protein 6.6 g/dL (6.6-8.7) Total Protein (PEP) Pending Albumin 3.7 g/dL (3.5-5.2) Albumin (PEP) Pending Globulin 2.9 g/dL Globulin (PEP) Pending Albumin/Globulin Ratio 1.2 (1.0-2.7) Fkeuz-1-Lqmpmclbc Pending Bmeel-4-Yfacpgyjz Pending Beta Globulins Pending Beta Gamma Globulin Pending PEP Abnormal Protein Bands Pending Protein Electrophoresis Interpret Pending Triglycerides Level 204 mg/dL (< 150) H Cholesterol Level 145 mg/dL (< 200) LDL Cholesterol 83 mg/dL (60-99) HDL Cholesterol 21 mg/dL (> 60) Cholesterol/HDL Ratio 6.9 (3.3-4.4) H Vitamin B12 Level 433 pg/mL (211-946) Vitamin D 25-Hydroxy Pending 25-Hydroxy Vitamin D2 Pending 25-Hydroxy Vitamin D3 Pending Folate Pending Thyroid Stimulating Hormone (TSH) 5.880 uIU/mL (0.300-4.500) Rapid Plasma Reagin Pending Neurologic Exam Objective PHYSICAL EXAMINATION: GENERAL: He is a well-developed, well-nourished, pleasant, gentleman , lying in bed, in no acute distress. HEAD: Normocephalic and atraumatic. EENT: Examination benign except for decreased hearing bilaterally. NECK: No neck rigidity was observed. NEUROLOGICAL EXAMINATION: MENTAL STATUS EXAMINATION: He was awake and alert. He was oriented to person, place, and time. He was able to recall 3/3 words immediately after 1 minute and 3 minutes on the second trial. He was able to remember presidents, Trump through Saenz Sr. with hints. His mathematical skills were fairly good. His visuospatial function was preserved. He however was mildly delirious. SPEECH: He had no dysarthria. LANGUAGE: He had a mild anomia for low-frequency words. CRANIAL NERVE EXAMINATION: II: The visual chavez were intact on confrontation testing. III, IV & : The external ocular movements were full and the pupils 3 mm in diameter, equal, round, regular, and reactive to light. V: He had normal facial sensations and the temporales, masseters, and pterygoids functioned normally. VII: He had a right VII central facial paresis. VIII: Hearing was decreased bilaterally. He had no nystagmus. X: He had no hoarseness of voice. XI: The sternocleidomastoids and trapezii functioned normally. XII: The tongue was in the midline without any fasciculations or atrophy. MOTOR SYSTEM: The tone was normal in all four extremities. Examination of muscle mass revealed no focal wasting. Examination of power revealed grade 5/5 power except for grade 4+/5 power in the right finger extensors. SENSORY EXAMINATION: He had intact sensations to pinprick, light touch, and graphesthesia. Position sense was minimally diminished in the toes bilaterally , but was normal in the fingers bilaterally. COORDINATION: He performed well on arsduz-zx-znyl and wvdx-mw-aloa testing. On Romberg test, he swayed, but did not fall to one side or the other. REFLEXES: Trace+ and bilaterally symmetric at the biceps, triceps, brachioradialis, and knees. 0 at both ankles. The plantar responses were flexor bilaterally. STANCE: He had a wide-based stance. GAIT: He walked with a wide-based, but stable gait with contact guard. Impression/Recommendations Diagnostic Impression 1. Mr. Jack Salazar is an 85-year-old, right-handed, gentleman, who does have a past history of hypertension, a stroke with no specific symptoms a few years ago, and positional vertigo for the last year or so. A few days ago, his vertigo became much more frequent, much more severe, and much more bothersome. As a result of that, he presented to the [facility] emergency room on 06/19/2016 and has since been admitted. 2. He feels better today with improvement in his vertigo but he is mildly delirious. 3. On neurological examination at this time, he does demonstrate mild problems with recent and remote memory, a mild right VII central facial paresis, right finger extensor weakness, decreased position sense in the toes bilaterally, globally diminished deep tendon reflexes, a wide-based stance, and a wide-based gait. 4. Laboratory data on his initial evaluation revealed a mild anemia with a hemoglobin of 13.1. The chemistry panel revealed a creatinine elevated to 1.6, sodium down to 133, chloride down to 91, bilirubin elevated to 1.5, ProBNP elevated to 765, and normal TSH and T4 with a minimally low T3. The urinalysis revealed 1+ leukocyte esterase, 0-2 red blood cells, and 2-4 white blood cells per high-power field. 5. The MRI of the brain done on 06/21/16 revealed atrophy and deep white matter pathology but no acute pathology. 6. 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 7. The right paresis involving the face and upper extremity is most probably related to his old stroke. Acute pathology has been excluded. 8. He has signs of neuropathic process, namely the decreased position sense in the toes bilaterally, diminished deep tendon reflexes, and unsteadiness on his feet. Recommendations 1. Continue present management. 2. If the vertigo becomes more bothersome, then he may respond well to Valium 2 mg taken at bedtime. 3. He was taught how to perform Mckenzie-Daroff exercises and was told to do 5 cycles in the morning on awakening and 5 cycles at night before going to sleep. Lars Jama M.D., M.S.P.LARS VEE Jun 21, 2016 20:02
[2016-06-21] MEDS: Lisinopril 20mg tab ORAL SCH (21:03)
[2016-06-21] MEDS ORDERED: Xarelto 15mg tab ORAL SCH (22:00)
--- NOTE | 2016-06-21 22:26 | Pulmonology Progress Note ---
Assessment/Plan Problems: (1) Positional vertigo (2) Atrial fibrillation (3) Unsteady gait (4) Weakness (5) HTN (hypertension) Assessment/Plan Assessment/Plan telemetry admission echocardiogram neuro evaluatin monitor heart rate needs to get home meds. Subjective ROS Limited/Unobtainable: No Constitutional: Reports: anorexia, fatigue Respiratory: Reports: shortness of breath Cardiovascular: Reports: chest pain, palpitations Neurologic: Reports: confusion, weakness Allergies: Coded Allergies: No Known Allergies (Unverified , 06/19/16) Objective Last 24 Hour Vital Signs Date Time Temp Pulse Resp B/P Pulse Ox O2 Delivery O2 Flow Rate FiO2 06/21/16 21:03 129/82 06/21/16 20:00 98.1 103 18 129/82 92 Room Air 06/21/16 16:09 99.1 83 17 130/90 95 Room Air 06/21/16 12:07 98.2 92 18 133/81 95 Room Air 06/21/16 08:00 98.9 100 18 134/99 96 Room Air 06/21/16 04:00 97.2 95 20 140/104 95 Room Air 06/21/16 00:00 98.6 52 19 137/88 95 Room Air Intake and Output 06/20/16 06/21/16 19:00 07:00 Intake Total 585 ml 540 ml Balance 585 ml 540 ml Intake Oral 360 ml 240 ml IV Total 225 ml 300 ml # Voids 1 3 General Appearance: no acute distress HEENT: normocephalic, atraumatic, anicteric, PERRL Respiratory/Chest: chest wall non-tender, decreased breath sounds, accessory muscle use Cardiovascular: tachycardia, arrhythmia, irregularly irregular Abdomen: normal bowel sounds, soft, non tender, no organomegaly, non distended Genitourinary: normal external genitalia Extremities: no cyanosis Skin: no rash, no lesions 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 II-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 grossly normal, no motor/sensory deficits Laboratory Tests 06/21/16 06:20: White Blood Count 5.2, Red Blood Count 4.58L, Hemoglobin 14.0L, Hematocrit 40.8L , Mean Corpuscular Volume 89, Mean Corpuscular Hemoglobin 30.4, Mean Corpuscular Hemoglobin Concent 34.2, Red Cell Distribution Width 13.7, Platelet Count 162, Mean Platelet Volume 10.3H, Neutrophils (%) (Auto) 64.0, Lymphocytes (%) (Auto) 24.3, Monocytes (%) (Auto) 9.4, Eosinophils (%) (Auto) 1.0, Basophils (%) (Auto) 1.3, Erythrocyte Sedimentation Rate 41H, Sodium Level 137, Potassium Level 4.1, Chloride Level 96L, Carbon Dioxide Level 25, Anion Gap 16H , Blood Urea Nitrogen 22, Creatinine 1.4H, Estimat Glomerular Filtration Rate , Glucose Level 154H, Hemoglobin A1c 6.9H, Uric Acid 5.9, Calcium Level 8.6, Phosphorus Level 2.7, Magnesium Level 2.0, Total Bilirubin 1.0, Gamma Glutamyl Transpeptidase 21, Aspartate Amino Transf (AST/SGOT) 34, Alanine Aminotransferase (ALT/SGPT) 18, Alkaline Phosphatase 44, Total Creatine Kinase 591H, C-Reactive Protein, Quantitative 3.5H, Pro-B-Type Natriuretic Peptide 565H , Total Protein 6.6, Total Protein (PEP) [Pending], Albumin 3.7, Albumin (PEP) [ Pending], Globulin 2.9, Globulin (PEP) [Pending], Albumin/Globulin Ratio 1.2, Qekvl-3-Tryexphwe [Pending], Kjrsk-5-Butvjligh [Pending], Beta Globulins [ Pending], Beta Gamma Globulin [Pending], PEP Abnormal Protein Bands [Pending], Protein Electrophoresis Interpret [Pending], Triglycerides Level 204H, Cholesterol Level 145, LDL Cholesterol 83, HDL Cholesterol 21, Cholesterol/HDL Ratio 6.9H, Vitamin B12 Level 433, Vitamin D 25-Hydroxy [Pending], 25-Hydroxy Vitamin D2 [Pending], 25-Hydroxy Vitamin D3 [Pending], Folate [Pending], Thyroid Stimulating Hormone (TSH) 5.880H, Rapid Plasma Reagin [Pending] Current Medications Medications (Trade) Dose Ordered Sig/Juanpablo Route PRN Reason Start Time Stop Time Status Last Admin Dose Admin Acetaminophen (Tylenol) 650 mg Q4H PRN ORAL Mild Pain/Temp > 100.5 06/20/16 22:00 07/20/16 21:59 06/21/16 20:21 Albuterol/ Ipratropium (DuoNeb 0.5-3(2.5)mg/3ml) 3 ml Q4H PRN HHN Shortness of Breath 06/20/16 22:45 06/25/16 22:44 Clonidine HCl (Catapres) 0.1 mg Q4H PRN ORAL SBP > 160 06/20/16 22:45 07/20/16 22:44 Dextrose (Dextrose 50%) STAT PRN IV Hypoglycemia 06/20/16 22:00 07/20/16 21:59 Hydrochlorothiazide (Hydrodiuril) 12.5 mg DAILY ORAL 06/21/16 21:00 07/21/16 20:59 Lisinopril (Prinivil) 20 mg DAILY ORAL 06/21/16 20:30 07/21/16 20:29 06/21/16 21:03 Lorazepam (Ativan 2mg/ml 1ml) 0.5 mg Q4H PRN IV For Anxiety 06/20/16 22:00 06/27/16 21:59 Meclizine HCl (Antivert) 25 mg Q6HR ORAL 06/21/16 09:00 07/21/16 08:59 06/21/16 18:07 Morphine Sulfate (Morphine Sulfate) 1 mg Q4H PRN IVP For Pain 7-10 06/20/16 22:00 06/27/16 21:59 Nitroglycerin (Ntg) 0.4 mg Q5M X 3 DOSES PRN SL Prn Chest Pain 06/20/16 21:15 07/20/16 21:14 Ondansetron HCl (Zofran) 4 mg Q6H PRN IVP Nausea & Vomiting 06/20/16 22:00 07/20/16 21:59 Polyethylene Glycol (Miralax) 17 gm HSPRN PRN ORAL Constipation 06/20/16 22:00 07/20/16 21:59 Rivaroxaban (Xarelto) 15 mg QPM ORAL 06/21/16 22:00 07/21/16 21:59 06/21/16 21:04 Temazepam (Restoril) 15 mg HSPRN PRN ORAL Insomnia 06/20/16 22:00 06/27/16 21:59 ANA M ESTEVES Jun 21, 2016 22:26
[2016-06-22] VITALS: BP 126/73
[2016-06-22 04:00] VITALS: BP 124/76
[2016-06-22] MEDS: Meclizine 25mg tab ORAL SCH ×3 (06:09→12:00)
[2016-06-22] MEDS: Lisinopril 20mg tab ORAL SCH (08:04)
[2016-06-22 08:39] VITALS: BP 121/72
[2016-06-22 10:22] LABS: A/G RATIO 1.1 (0.7-1.7); ABNORMAL PROTEIN BAND 1 Not Observed g/dL (Not Observed); ALBUMIN 3.3 g/dL (2.9-4.4); ALPHA-1 GLOBULIN 0.2 g/dL (0.0-0.4); ALPHA-2 GLOBULIN 0.9 g/dL (0.4-1.0); BETA GLOBULIN 0.8 g/dL (0.7-1.3); GAMMA GLOBULIN 1.1 g/dL (0.4-1.8); TOTAL PROTEIN 6.3 g/dL (6.0-8.5)
--- NOTE | 2016-06-22 11:44 | General Progress Note ---
Assessment/Plan Status: stable Assessment/Plan status; Renal failure- ? 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 Plan: no labs for today Hydrate- Monitor renal parameters- Urine studies- per neuro advise Per orders Subjective ROS Limited/Unobtainable: No Constitutional: Reports: malaise, weakness Allergies: Coded Allergies: No Known Allergies (Unverified , 06/19/16) Objective Last 24 Hour Vital Signs Date Time Temp Pulse Resp B/P Pulse Ox O2 Delivery O2 Flow Rate FiO2 06/22/16 08:39 97.5 94 20 121/72 96 Room Air 06/22/16 08:18 96 18 Room Air 06/22/16 08:04 121/72 06/22/16 04:00 98.2 95 18 124/76 95 Room Air 06/22/16 00:00 96.6 91 20 126/73 98 Room Air 06/21/16 21:03 129/82 06/21/16 20:00 98.1 103 18 129/82 92 Room Air 06/21/16 19:00 103 18 Room Air 06/21/16 16:09 99.1 83 17 130/90 95 Room Air 06/21/16 12:07 98.2 92 18 133/81 95 Room Air Intake and Output 06/21/16 06/22/16 19:00 07:00 Intake Total 390 ml 480 ml Balance 390 ml 480 ml Intake Oral 240 ml 480 ml IV Total 150 ml # Voids 2 3 Height (Feet): 6 Height (Inches): 1.00 Weight (Pounds): 215 General Appearance: no apparent distress Objective other physical exam not changed YANE VALENCIA Jun 22, 2016 11:44
[2016-06-22 12:05] VITALS: BP 118/76
--- NOTE | 2016-06-22 13:35 | Neurology Progress Note ---
Interim History Interim History Interim History Mr. Salazar feels better. The dizziness is much better. The mind is clear today. He has been able to walk well. He is able to eat well. He denies any new neurologic symptoms. Review of Systems Neuro Review of Systems Benign. Objective Physical Exam Last Vital Signs Date Time Temp Pulse Resp B/P Pulse Ox O2 Delivery O2 Flow Rate FiO2 06/22/16 12:05 97.7 90 20 118/76 97 Room Air Neurologic Exam Objective PHYSICAL EXAMINATION: GENERAL: He is a well-developed, well-nourished, pleasant, gentleman , lying in bed, in no acute distress. HEAD: Normocephalic and atraumatic. EENT: Examination benign except for decreased hearing bilaterally. NECK: No neck rigidity was observed. NEUROLOGICAL EXAMINATION: MENTAL STATUS EXAMINATION: He was awake and alert. He was oriented to person, place, and time. He was able to recall 3/3 words immediately after 1 minute and 3 minutes on the second trial. He was able to remember presidents, Trump through Saenz Sr. with hints. His mathematical skills were fairly good. His visuospatial function was preserved. SPEECH: He had no dysarthria. LANGUAGE: He had a mild anomia for low-frequency words. CRANIAL NERVE EXAMINATION: II: The visual chavez were intact on confrontation testing. III, IV & : The external ocular movements were full and the pupils 3 mm in diameter, equal, round, regular, and reactive to light. V: He had normal facial sensations and the temporales, masseters, and pterygoids functioned normally. VII: He had a right VII central facial paresis. VIII: Hearing was decreased bilaterally. He had no nystagmus. X: He had no hoarseness of voice. XI: The sternocleidomastoids and trapezii functioned normally. XII: The tongue was in the midline without any fasciculations or atrophy. MOTOR SYSTEM: The tone was normal in all four extremities. Examination of muscle mass revealed no focal wasting. Examination of power revealed grade 5/5 power except for grade 4+/5 power in the right finger extensors. SENSORY EXAMINATION: He had intact sensations to pinprick, light touch, and graphesthesia. Position sense was minimally diminished in the toes bilaterally , but was normal in the fingers bilaterally. COORDINATION: He performed well on eogihx-wa-xtdv and llst-bt-jetb testing. On Romberg test, he swayed, but did not fall to one side or the other. REFLEXES: Trace+ and bilaterally symmetric at the biceps, triceps, brachioradialis, and knees. 0 at both ankles. The plantar responses were flexor bilaterally. STANCE: He had a wide-based stance. GAIT: He walked with a wide-based, but stable gait with contact guard. Impression/Recommendations Diagnostic Impression 1. Mr. Jack Salazar is an 85-year-old, right-handed, gentleman, who does have a past history of hypertension, a stroke with no specific symptoms a few years ago, and positional vertigo for the last year or so. A few days ago, his vertigo became much more frequent, much more severe, and much more bothersome. As a result of that, he presented to the [facility] emergency room on 06/19/2016 and has since been admitted. 2. He feels better today with improvement in his vertigo. 3. On neurological examination at this time, he does demonstrate mild problems with recent and remote memory, a mild right VII central facial paresis, right finger extensor weakness, decreased position sense in the toes bilaterally, globally diminished deep tendon reflexes, a wide-based stance, and a wide-based gait. 4. Laboratory data on his initial evaluation revealed a mild anemia with a hemoglobin of 13.1. The chemistry panel revealed a creatinine elevated to 1.6, sodium down to 133, chloride down to 91, bilirubin elevated to 1.5, ProBNP elevated to 765, and normal TSH and T4 with a minimally low T3. The urinalysis revealed 1+ leukocyte esterase, 0-2 red blood cells, and 2-4 white blood cells per high-power field. 5. The MRI of the brain done on 06/21/16 revealed atrophy and deep white matter pathology but no acute pathology. 6. 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 7. The right paresis involving the face and upper extremity is most probably related to his old stroke. Acute pathology has been excluded. 8. He has signs of neuropathic process, namely the decreased position sense in the toes bilaterally, diminished deep tendon reflexes, and unsteadiness on his feet. Recommendations 1. Continue present management. 2. If the vertigo becomes more bothersome, then he may respond well to Valium 2 mg taken at bedtime. 3. He was taught how to perform Mckenzie-Daroff exercises and was told to do 5 cycles in the morning on awakening and 5 cycles at night before going to sleep. 4. Follow up in office in 6-8 weeks. Lars Ochoa M.D., M.S.P.H. LARS OCHOA Jun 22, 2016 13:35
--- NOTE | 2016-06-22 15:39 | Consultation ---
DATE OF CONSULTATION: 06/20/2016 CARDIOLOGY CONSULTATION REFERRING PHYSICIAN: Jenifer Paul M.D. REASON FOR CONSULTATION: Syncope and atrial fibrillation. HISTORY OF PRESENT ILLNESS: The patient is a very pleasant 85-year-old gentleman with history of hypertension, atrial fibrillation, and history of atrial flutter and episodes of bradycardia, who is also being followed up by at [facility]. The patient actually was seen by her about three weeks ago on 06/10/2016 for followup on Zio Patch. The patient presented to the emergency room. He had episodes of dizziness and presyncope. Cardiology consultation was obtained for further evaluation. The patient was also in atrial fibrillation. PAST MEDICAL HISTORY: 1. Hypertension. 2. Atrial flutter. 3. Atrial fibrillation. 4. CVA. 5. Hyperlipidemia. 6. Chronic kidney disease, stage 3. 7. Muscle spasm. 8. Vertigo. 9. Prostate cancer, . 10. Sleep apnea. FAMILY HISTORY: Noncontributory. SOCIAL HISTORY: He lives at home. He does not smoke or drink alcohol. REVIEW OF SYSTEMS: Review of systems was performed and was negative other than what was mentioned in the history of present illness. PHYSICAL EXAMINATION: VITAL SIGNS: Blood pressure 132/75, pulse 85, respirations 20, and temperature 97.3 degrees. NECK: Showed no JVD or carotid bruits. LUNGS: Clear. CARDIOVASCULAR: Shows irregularly irregular S1, S2, with no gallop or murmur. ABDOMEN: Soft. EXTREMITIES: No pitting edema. LABORATORY DATA: White count 5.7, hemoglobin 13.7, hematocrit of 40, and platelet count 167,000. Sodium 134, potassium 4.9, BUN 22, creatinine 1.5, and glucose 122. BNP 7652. Troponin is negative. ASSESSMENT AND PLAN: 1. Atrial fibrillation. Placed on Zio Patch and was between 37 and 199, tachy-jennifer syndrome with pauses of 2 to 3 seconds. The patient was advised to undergo permanent pacemaker implantation and also recommended to have electrophysiology study given the episode of nonsustained VT pacemaker. It has not been done yet. 2. Chronic atrial fibrillation. The patient also ____04:19 June 2014. CHEO-VASc score is 5. Continue Xarelto daily. 3. History of nonsustained ventricular tachycardia. Ejection fraction 50% at [facility]. 4. Vertigo. The patient is on meclizine. 5. Chronic kidney disease with creatinine of 1.5. Thank you very much for allowing me to participate in the care of this patient. Please do not hesitate to contact me for any questions regarding my evaluation. Mazin Vanessa M.D. DR: SALVADOR JOB#: [id number] CC:
[2016-06-25] MEDS ORDERED: XARELTO10 MG ORAL (08:25)
[2016-06-25] MEDS ORDERED: MECLIZINE HCL25 MG ORAL (08:25)
--- NOTE | 2016-06-25 08:38 | Discharge Summary ---
Discharge Summary Hospital Course Date of Admission Jun 19, 2016 at 20:54 Date of Discharge Jun 22, 2016 at 14:30 Admitting Diagnosis dizziness, unsteady gait, ARF HPI Jack Salazar is a 85 year old male who was admitted on Jun 19, 2016 at 20:54 for Dizziness, Unsteady Gait, Acute Renal Failure Hospital Course dc summary #[id number] Discharge Medications New Medications: Meclizine Hcl* (Meclizine*) 25 Mg Tablet 25 MG ORAL THREE TIMES A DAY PRN, #30 TAB Rivaroxaban (Xarelto*) 10 Mg Tablet 15 MG ORAL DAILY, #30 TAB 0 Refills Continued Medications: Unable to Obtain Medications (Unable To Obtain Meds) 1 Ea Ea Discharge Condition Upon Discharge: stable Discharge Disposition Patient was discharged to Home with Home Health(06) Discharge Diagnoses: Discharge Instructions Discharge Instructions Special Instructions I have been assigned to complete a D/C Summary on this account. I was not involved in the patient management Phuong Anthony NP (Vanchtein) Jun 25, 2016 08:38
--- NOTE | 2016-06-25 23:38 | Discharge Summary 2 SIG ---
DATE OF ADMISSION: 06/19/2016 DATE OF DISCHARGE: 06/22/2016 REASON FOR ADMISSION: 85-year-old male presented to the emergency room with complaints of dizziness for 1 month, worse in the last few days. The patient felt like room was spinning around him. He denied blurry vision, nausea, or vomiting. He got headaches at times. He denied chest pain , shortness of breath. He stated that he was prescribed medication for dizziness but it did not help him. Workup in the emergency room revealed EKG with normal sinus rhythm. No acute ischemic changes. Troponin was negative. No leukocytosis. Stable hemoglobin and hematocrit. Creatinine was 1.6. Chest x-ray revealed no acute process. CT of the head was without evidence for any acute intracranial pathology. The patient was given 1 liter of IV fluids. The patient was given meclizine. Despite hydration and meclizine, the patient remained symptomatic. The patient was admitted for further management. ADMITTING DIAGNOSES: 1. Dizziness. 2. Acute renal failure. 3. Unsteady gait. HOSPITAL STAY: The patient was admitted to telemetry floor. The patient noted to have atrial fibrillation on monitor with a tachybrady and episodes of nonsustained ventricular tachycardia. Cardiology consult was requested. Neurology and ENT consults were requested as well. Per ENT, [place]-Hallpike maneuver was negative. ENT recommended outpatient videonystagmogram (VNG) to be performed to determine the source of dizziness central versus peripheral. Neurologist ordered an MRI of the brain, which was negative for any acute intracranial pathology. Carotid duplex revealed mild carotid stenosis in internal carotid arteries and minimal, 20% stenosis of the external carotid arteries. According to neurologist, his history and clinical presentation was consistent with labyrinthitis vertigo. Neurologist recommended to hydrate the patient. The patient was taught how to perform Mckenzie-Daroff exercises. The patient was told to do 5 cycles in the morning upon awakening and 5 cycles at night before going to bed. Follow up with neurologist in 6 to 8 weeks. Neurologist also suggested that if the vertigo becomes more bothersome , he might respond well to Valium at the bedside. At this time, Valium was hold. Meclizine to be continued on as needed basis. Creatinine was down to 1.4 after intravenous hydration. According to nursing assoc, who was also involved in care of this patient's, acute renal failure was likely secondary to dehydration versus possible to hypertension. Blood pressure was stable. Gas Meter Repairer seen the patient. Echocardiogram revealed preserved ejection fraction of 55% to 60% and right ventricular systolic pressure of 42 consistent with mild pulmonary hypertension as well as the evidence of moderate tricuspid regurgitation, no evidence of left ventricular hypertrophy. Chest x-ray was negative. Atrial fibrillation on telemetry, rate was controlled. The patient was off any AVN paola. The patient was on Xarelto. Continue at home , dosing with regards to renal insufficiency. According to the patient, he has a veneer jointer offbearer in [facility] that he follows. The patient was advised to undergo permanent pacemaker implantation and have electrophysiology study, given tachy-jennifer syndrome and episodes of nonsustained ventricular tachycardia. The patient will follow up with the veneer jointer offbearer upon discharge. Blood pressure was stable without any antihypertensive at this time. DISCHARGE DIAGNOSES: 1. Labyrinthitis vertigo. 2. Acute renal failure on chronic renal insufficiency. 3. Atrial fibrillation, controlled 4. Hypertension. 5. Mild pulmonary hypertension. 6. History of cerebrovascular accident/transient ischemic attack. DISCHARGE MEDICATIONS: See medication reconciliation list. DISCHARGE INSTRUCTIONS: The patient was discharged home with home health. The patient to follow up with the primary medical doctor. The patient to follow up with the veneer jointer offbearer in [facility] for possible pacemaker placement. The patient to follow up with neurologist in the office in 6 to 8 weeks. The patient to follow up with ENT as an outpatient for videonystagmogram as recommended by ENT specialist. Jenifer Paul M.D. I have been assigned to dictate discharge summary on this account and I was not involved in the patient's management. Phuong Anthony (Vanchtein) N.P. DR: MITCHELL JOB#: [id number] CC: POONAM
[2016-06-26 09:27] LABS: VITAMIN D 25-OH TOTAL 7.2 ng/mL (.)
== END 2016-06-22 14:30 | disposition home or self-care (01) | DRG 149 ==
LOC: EDBD 16:58 → EMR 18:05 → 2E 20:54 → EDBEDREQ 22:26 → 2E 06-20 02:41 → 3E 06-20 21:21
DX: H81.09 Meniere's disease, unspecified ear (principal); N17.9 Acute kidney failure, unspecified; I47.2 Ventricular tachycardia; E86.0 Dehydration; I27.2 Other secondary pulmonary hypertension; I49.5 Sick sinus syndrome; I48.2 Chronic atrial fibrillation; I12.9 Hypertensive chronic kidney disease with stage 1 through stage 4 chronic kidney disease, or unspecified chronic kidney disease; E78.5 Hyperlipidemia, unspecified; I69.30 Unspecified sequelae of cerebral infarction; N18.9 Chronic kidney disease, unspecified; Z86.73 Personal history of transient ischemic attack (TIA), and cerebral infarction without residual deficits; R26.81 Unsteadiness on feet; Z79.01 Long term (current) use of anticoagulants
CPT/HCPCS: 36415; 70450; 70551; 71010; 80053; 80061; 81001; 82248; 82306; 82533; 82550; 82553; 82607; 82746; 82977; 83036; 83735; 83880; 83930; 83935; 84100; 84165; 84300; 84439; 84443; 84481; 84484; 84550; 85025; 85610; 85651; 85730; 86140; 86592; 93005; 93306; 93880; 94664